=== PATIENT | female | born 1995 | race American Indian/Alaskan Native ===

== ENCOUNTER 2018-09-29 21:35 | Emergency (ER) | payer SELFPAY ==
[2018-09-29 22:05] VITALS: TEMP 98.3; O2SAT 100; BMI 23.5
--- NOTE | 2018-09-29 22:12 | ED PDOC ---
Arrival/HPI - General Historian: Patient - History of Present Illness Narrative History of Present Illness (Text): 09/29/18 22:08 22yo female with no pmhx who present with complaint of right 4rd finger throbbing pain x 3days. Notes that she accidentally closed a truck door on her finger. She came to ED today because of the persistent pain. states she took Ibuprofen this morning with some relieve. Denies any other complaint. Past Medical History - Provider Review Nursing Documentation Reviewed: Yes Family/Social History - Physician Review Nursing Documentation Reviewed: Yes Family/Social History: Unknown Family HX Allergies/Home Meds Allergies/Adverse Reactions: Allergies No Known Allergies Allergy (Verified 09/29/18 22:07) Review of Systems - Physician Review All systems were reviewed & negative as marked: Yes - Review of Systems Constitutional: Normal Eyes: Normal ENT: Normal Respiratory: Normal Cardiovascular: Normal Gastrointestinal: Normal Genitourinary Female: Normal Musculoskeletal: Arthralgias (Right 3rd finger) Skin: Normal Neurological: Normal Endocrine: Normal Hemo/Lymphatic: Normal Psychiatric: Normal Physical Exam Vital Signs Reviewed: Yes Vital Signs Temp Pulse Resp BP Pulse Ox 09/29/18 22:05 98.3 F 82 18 140/75 100 Temperature: Afebrile Blood Pressure: Normal Pulse: Regular Respiratory Rate: Normal Appearance: Positive for: Well-Appearing, Non-Toxic, Comfortable Pain Distress: None Mental Status: Positive for: Alert and Oriented X 3 - Systems Exam Head: Present: Atraumatic, Normocephalic Pupils: Present: PERRL Extroacular Muscles: Present: EOMI Conjunctiva: Present: Normal Mouth: Present: Moist Mucous Membranes Neck: Present: Normal Range of Motion Respiratory/Chest: Present: Clear to Auscultation, Good Air Exchange. No: Respiratory Distress, Accessory Muscle Use Cardiovascular: Present: Regular Rate and Rhythm, Normal S1, S2. No: Murmurs Abdomen: No: Tenderness, Distention, Peritoneal Signs Back: Present: Normal Inspection Upper Extremity: Present: Normal ROM, NORMAL PULSES, Tenderness (Right 3rd finger diffusely), Swelling (Right 3rd finger), Neurovascularly Intact, Other (Blood collection noted on right 4th finger nail base). No: Cyanosis, Edema Lower Extremity: Present: Normal Inspection. No: Edema Neurological: Present: GCS=15, CN II-XII Intact, Speech Normal Skin: Present: Warm, Dry, Normal Color. No: Rashes Psychiatric: Present: Alert, Oriented x 3, Normal Insight, Normal Concentration Medical Decision Making ED Course and Treatment: 09/30/18 01:37 PT present to ED for stated history. 09/30/18 01:38 Right hand xray - No acute fracture Trephination of the nail was done by cleaning the finger with betadine. Digit block done with 5ml of 1% lido and blood released using electric cautery. Finger cleaned and dressed. Pt tolerated procedure. Placed on prophylactic abx. Referred to her PMD. Disposition/Present on Arrival - Present on Arrival Any Indicators Present on Arrival: No History of DVT/PE: No Urinary Catheter: No History of Decub. Ulcer: No History Surgical Site Infection Following: None - Disposition Have Diagnosis and Disposition been Completed?: Yes Diagnosis: Subungual hematoma Disposition: HOME/ ROUTINE Disposition Time: 23:15 Patient Plan: Discharge Condition: STABLE Discharge Instructions (ExitCare): Contusion (DC) Additional Instructions: Keep wound clean and dry Follow up with your Doctor Return to ED for any new or worsening symptoms Prescriptions: Cephalexin [Keflex] 500 mg PO TID #21 capsule RX: Ibuprofen [Motrin Tab] 600 mg PO Q6 #15 tab Referrals: Yesenia Pino MD [Medical Doctor] - Follow up with primary Forms: WORK NOTE
[2018-09-29] MEDS ORDERED: Lidocaine PF 2% (5 ml) Inj (For Cardiac Arrhy) ONE (23:52)
[2018-09-30 00:06] VITALS: BP 124/82; PULSE 81; RESP 20
--- NOTE | 2018-09-30 10:59 | RAD ---
Date of service: 09/29/2018 PROCEDURE: Right middle finger radiographs. HISTORY: finger pain s/p trauma COMPARISON: None. TECHNIQUE: AP radiograph of the right hand, as well as spot oblique and lateral images of right middle finger were obtained. FINDINGS: RIGHT MIDDLE FINGER: Right middle finger normal, without fracture of focal lesion. Remainder of the right hand (as seen on the AP view) grossly unremarkable. JOINTS: Normal. SOFT TISSUES: Normal. OTHER FINDINGS: None. IMPRESSION: Unremarkable right middle finger radiographs.
== END 2018-09-30 00:05 | disposition home or self-care (01) ==
LOC: ED 21:35
DX: S60.031A Contusion of right middle finger without damage to nail, initial encounter (principal); W23.0XXA Caught, crushed, jammed, or pinched between moving objects, initial encounter; Y92.9 Unspecified place or not applicable

== ENCOUNTER 2018-11-14 23:10 | Emergency (ER) | payer SELFPAY ==
[2018-11-14 23:19] VITALS: BMI 21.2
[2018-11-14 23:20] VITALS: BP 106/73; PULSE 82; RESP 18; TEMP 97.6; O2SAT 95
--- NOTE | 2018-11-14 23:48 | ED PDOC ---
Arrival/HPI - General Chief Complaint: Finger,Hand,&Wrist Time Seen by Provider: 11/14/18 23:20 Historian: Patient - History of Present Illness Narrative History of Present Illness (Text): Loreto Perales is a 22 year old female, with no significant past medical history, who presents to the Emergency department complaining of right hand 3rd digit pain for 1 day. Patient was seen here approximately 1 month ago for nail trephination after getting her finger caught in a truck door. She took the prescribed antibiotics as instructed. Patient states since then her nail has been growing out and slowly coming off the finger. Patient states today, it got caught on piece of clothing, causing the lateral edge of the nailbed to be sore. Patient took nothing for pain at home. Patient denies any new trauma/injury, numbness, paresthesias, or any other complaints. Symptom Onset: Gradual Symptom Course: Unchanged Activities at Onset: Light Context: Home Past Medical History - Provider Review Nursing Documentation Reviewed: Yes - Psychiatric Hx Substance Use: No Family/Social History - Physician Review Nursing Documentation Reviewed: Yes Family/Social History: Unknown Family HX Smoking Status: Never Smoked Hx Alcohol Use: Yes Hx Substance Use: No Allergies/Home Meds Allergies/Adverse Reactions: Allergies No Known Allergies Allergy (Verified 11/14/18 23:18) Review of Systems - Physician Review All systems were reviewed & negative as marked: Yes - Review of Systems Constitutional: Normal. absent: Fevers Eyes: Normal. absent: Vision Changes ENT: Normal Respiratory: Normal. absent: SOB, Cough Cardiovascular: Normal. absent: Chest Pain Gastrointestinal: Normal. absent: Abdominal Pain, Diarrhea, Nausea, Vomiting Genitourinary Female: Normal. absent: Dysuria, Frequency, Hematuria, Urine Output Changes Musculoskeletal: Other (+right 3rd digit pain and lifted nail). absent: Neck Pain Skin: Normal Neurological: Normal Endocrine: Normal Hemo/Lymphatic: Normal Psychiatric: Normal Physical Exam Vital Signs Reviewed: Yes Vital Signs Temp Pulse Resp BP Pulse Ox 11/14/18 23:19 97.6 F 82 18 106/73 95 Temperature: Afebrile Blood Pressure: Normal Pulse: Regular Respiratory Rate: Normal Appearance: Positive for: Well-Appearing, Non-Toxic, Comfortable Pain Distress: None Mental Status: Positive for: Alert and Oriented X 3 - Systems Exam Head: Present: Atraumatic, Normocephalic Pupils: Present: PERRL Extroacular Muscles: Present: EOMI Conjunctiva: Present: Normal Mouth: Present: Moist Mucous Membranes Respiratory/Chest: Present: Clear to Auscultation, Good Air Exchange. No: Respiratory Distress, Accessory Muscle Use Cardiovascular: Present: Regular Rate and Rhythm, Normal S1, S2. No: Murmurs Upper Extremity: Present: Normal ROM, NORMAL PULSES, Tenderness (Tenderness to lateral aspect of nail bed to right 3rd diigt), Neurovascularly Intact, Capillary Refill < 2s, Other (Old nail partially lifted but attached to nail bed on lateral aspect; new nail growing normally from cuticle; underlying nailbed without laceration; no purulence or other signs of infection). No: Swelling, Erythema, Temperature Abnormalties Lower Extremity: Present: Normal ROM Neurological: Present: GCS=15, Speech Normal, Motor Func Grossly Intact, Normal Sensory Function, Gait Normal Skin: Present: Warm, Dry, Normal Color. No: Rashes Psychiatric: Present: Alert, Oriented x 3, Normal Insight, Normal Concentration, Normal Affect, Normal Mood Medical Decision Making ED Course and Treatment: 11/14/18 23:53 Impression: 22 year old female complaining of right hand 3rd digit pain for 1 day. Plan: -- Nail trimming -- Reassess and disposition Prior Visits: Notes and results from previous visits were reviewed. Progress Notes: Pt refused any pain medication. Old nail trimmed down to where it is still attached to lateral nail bed in order to prevent it from being caught and causing pain. Pt tolerated well without complication. Bandaid applied to finger. Pt advised to wear the bandaid daily u ntil the nail grows out to prevent pain, advised that it may take several months. Pt verbalizes understanding. Diagnostic testing results and plan of care discussed with patient. Strict instructions given regarding prescription use, importance of followup, and signs/symptoms to return to ER including numbness, paresthesias, signs of infection, or any other new/worsening symptoms. Pt verbalized understanding of discussion. Patient is A&Ox3, ambulating with steady gait, with vital signs stable for discharge. - Scribe Statement The provider has reviewed the documentation as recorded by the Jair Sevilla Provider Scribe Attestation: All medical record entries made by the Scribe were at my direction and personally dictated by me. I have reviewed the chart and agree that the record accurately reflects my personal performance of the history, physical exam, medical decision making, and the department course for this patient. I have also personally directed, reviewed, and agree with the discharge instructions and disposition. Disposition/Present on Arrival - Present on Arrival Any Indicators Present on Arrival: No History of DVT/PE: No History of Uncontrolled Diabetes: No Urinary Catheter: No History of Decub. Ulcer: No History Surgical Site Infection Following: None - Disposition Have Diagnosis and Disposition been Completed?: Yes Diagnosis: Finger pain Disposition: HOME/ ROUTINE Disposition Time: 23:40 Condition: IMPROVED Discharge Instructions (ExitCare): Nail Avulsion (DC) Additional Instructions: Keep nail covered with a bandaid at all times to prevent it from being caught Clip nail as it begins to grow out Ibuprofen/tylenol for pain Followup with primary doctor within 2 days Return to ER with any new/worsening symptoms Referrals: Jose Ramon Crooks MD [Primary Care Provider] - Follow up with primary Forms: [facility] (Welsh), WORK NOTE
== END 2018-11-14 23:52 | disposition home or self-care (01) ==
LOC: ED 23:10
DX: M79.644 Pain in right finger(s) (principal)